=== PATIENT | male | born 1945 | race Hispanic/Latino ===

== ENCOUNTER 2018-03-08 15:02 | Observation (INO) | payer MEDICARE ==
[~2018-03-08] VITALS: Ht 170.2 cm; Wt 62.6 kg
[2018-03-08] MEDS ORDERED: ASPIRIN 81 MG CHEW TAB PO STA (16:15)
[2018-03-08 16:33] LABS: BASOPHILS % 0.3 % (0.0-1.0); EOSINOPHILS % 0.2 % (0.0-6.0); HEMATOCRIT 41.6 % (38.2-49.6); HEMOGLOBIN 14.8 g/dL (14.0-18.0); LYMPHOCYTES # (AUTO) 1.1 (1.0-3.2); LYMPHOCYTES % 18.4 % (18.0-39.1); MEAN CORPUSCULAR HEMOGLOBIN 33.1 pg (28-32); MEAN CORPUSCULAR HGB CONC 35.6 g/dL (31-35); MEAN CORPUSCULAR VOLUME 93.1 fL (81-99); MONOCYTES # (AUTO) 0.7 (0.2-0.8); MONOCYTES % 11.4 % (4.4-11.3); NEUTROPHILS # (AUTO) 4.3 (2.1-6.9); NEUTROPHILS % 69.4 % (38.7-80.0); PLATELET COUNT 191 x10e3/uL (140-360); RED BLOOD COUNT 4.47 x10e6/uL (4.3-5.7); RED CELL DISTRIBUTION WIDTH 12.9 % (11.7-14.4)
[2018-03-08 16:40] LABS: INR 1.02; PROTHROMBIN TIME 12.6 seconds (11.9-14.5)
[2018-03-08 16:41] LABS: PARTIAL THROMBOPLASTIN TIME 28.6 seconds (23.8-35.5)
[2018-03-08 16:48] LABS: ALANINE AMINOTRANSFERASE 19 IU/L (0-55); ALBUMIN 3.3 g/dL (3.5-5.0); ALBUMIN/GLOBULIN RATIO 0.8 (0.8-2.0); ALKALINE PHOSPHATASE 81 IU/L (40-150); ANION GAP 12.6 mmol/L (8-16); BLOOD UREA NITROGEN 15 mg/dL (7-26); BUN/CREATININE RATIO 15 (6-25); CALCIUM 9.9 mg/dL (8.4-10.2); CARBON DIOXIDE 26 mmol/L (22-29); CHLORIDE 103 mmol/L (98-107); CREATINE KINASE 21 IU/L (30-200); CREATININE, SERUM 0.98 mg/dL (0.72-1.25); EST GLOMERULAR FILTRATION RATE > 60 ML/MIN (60-); GLUCOSE 114 mg/dL (74-118); POTASSIUM 4.6 mmol/L (3.5-5.1); SODIUM 137 mmol/L (136-145)
[2018-03-08 17:05] LABS: CLARITY,URINE SL CLOUDY (CLEAR); COLOR,URINE STRAW (YELLOW); KETONES,URINE NEGATIVE (NEGATIVE); LEUKOCYTE ESTERASE ,URINE NEGATIVE (NEGATIVE); NITRITE,URINE NEGATIVE (NEGATIVE); PROTEIN,URINE DIPSTICK TRACE (NEGATIVE); URINE UROBILINOGEN 1 mg/dL (0.2 - 1)
--- NOTE | 2018-03-08 17:05 | Diagnostic Imaging Report ---
PROCEDURE: A single PA view of the chest. COMPARISON: None. INDICATIONS: ABNORMAL EKG FINDINGS: Lines/tubes: None. Lungs: The lungs are well inflated. Mild prominence of interstitial markings, predominantly in the midlung, likely reflecting mild chronic interstitial changes. There is no evidence of pneumonia or pulmonary edema. Pleura: There is no pleural effusion or pneumothorax. Heart and mediastinum: Cardiac silhouette is unremarkable. Pulmonary vasculature is normal. Bones: No acute bony abnormality. IMPRESSION: 1. No acute cardiopulmonary abnormalities. Jon Champion M.D. Dictated by: Jon Champion M.D. on 03/08/2018 at 17:10 Electronically approved by: Jon Chmapion M.D. on 03/08/2018 at 17:10
[2018-03-08 17:06] LABS: BILIRUBIN,URINE NEGATIVE (NEGATIVE)
[2018-03-08 17:25] LABS: BACTERIA,URINE MODERATE /HPF; RBC,URINE 0-5 /HPF (0-5); WBC,URINE (MAN) 0-5 /HPF (0-5)
[2018-03-08 17:26] LABS: HYALINE CASTS 0-1 (0-1); MUCUS,URINE MODERATE (RARE)
[2018-03-08] MEDS ORDERED: MORPHINE SULFATE 2 MG/ML SYR IV PRN (21:45)
[2018-03-09 00:30] VITALS: BP 113/72
[2018-03-09 00:33] VITALS: BP 113/72
[2018-03-09 01:20] LABS: CREATINE KINASE MB 0.4 ng/mL (0-5.0)
[2018-03-09] MEDS ORDERED: ULTRAM50 MG PO (04:10)
[2018-03-09 05:25] VITALS: BP 113/63
[2018-03-09 05:31] LABS: CHOL/HDL RATIO 3.9 (3.9-4.7)
[2018-03-09 07:38] VITALS: BP 99/51
[2018-03-09 09:25] LABS: CREATINE KINASE MB 0.4 ng/mL (0-5.0)
[2018-03-09 11:23] VITALS: BP 133/64
--- NOTE | 2018-03-09 14:09 | History and Physical ---
ATTENDING PHYSICIAN: Antony CLINICAL HISTORY: This is a 68-year-old man admitted via the emergency room and Dr. Ulises Felton's office because of on and off chest pains for approximately a week. This patient had a nuclear stress test in 2009, showed no definite ischemic changes. He was seen again in 2012 before knee surgery. He is apparently disabled because of the knee issues although he said he has had a previous heart attack but there is no such history. He apparently has not had any chest pains or shortness of breath. He is chronically taking tramadol for knee pains. In the past, he has been chronically taking hydrocodone. He continued to smoke and drink. He is not physically active but he is able to walk to the [facility] from his house without any exertion-related chest pains. He watches TV most of the day at home. PAST MEDICAL HISTORY: Remarkable for COPD, dizziness. PAST SURGERIES: Included knee surgery. FAMILY HISTORY: Father had coronary artery disease, mother had diabetes and coronary artery disease. PERSONAL AND SOCIAL HISTORY: Was a smoker since age 17, continued to smoke. He was a heavy drinker, continues to drink 1 to 2 beers per day. He is a retired [employer]. ALLERGIES: NONE KNOWN. REVIEW OF SYSTEMS: Negative. PHYSICAL EXAMINATION GENERAL: He is alert, coherent. VITAL SIGNS: Stable. CARDIAC: Jugular veins were not distended. S1, S2 were regular. There are no appreciable murmurs. LUNGS: Clear. ABDOMEN: Soft. Bowel sounds are present. EXTREMITIES: Show no cyanosis, clubbing or edema. LABORATORY STUDIES: Electrocardiogram showed no acute changes. Chest x-ray was negative. Initial enzymes are negative. IMPRESSION 1. Atypical chest pains not related to exertion, of relatively short duration lasting for 1 second to 5 minutes, associated with shortness of breath. 2. Chronic obstructive pulmonary disease, continued cigarette smoking. 3. History of heavy alcohol usage. 4. Chronic pain medication usage for knee pain. RECOMMENDATIONS: Rule out myocardial infarction. This patient can probably be discharged and do a stress test on outpatient basis. Job#: [id number] LPA cc:ULISES FELTON MD
--- NOTE | 2018-03-09 16:17 | Discharge Summary ---
CLINICAL HISTORY: This is a 68-year-old man, patient of Dr. Ulises Felton, admitted via the emergency room because of atypical chest pains lasting 1 second to 5 minutes on and off for the past week. Please refer to my previous dictation concerning details of current history, past medical history, personal and social history, family history, review of systems, physical examination, and initial laboratory studies. HOSPITAL COURSE: His cardiac enzymes were negative times 3. We decided to do stress testing on an outpatient basis. He will discharge and make an appointment with my office for followup and see Dr. Ulises Felton for followup. DISCHARGE DIAGNOSES: Same as on admission. ALEX DESAI MD Job#: [id number] RI cc:ULISES FELTON MD
== END 2018-03-09 12:58 | disposition home or self-care (01) ==
LOC: ER 15:02 → ERHOLD 21:34 → IMCU 03-09 00:44
PROVIDERS: ADMIT Internal Medicine Cardiovascular Disease; ATTEND Internal Medicine Cardiovascular Disease
DX: R07.89 Other chest pain (principal); J44.9 Chronic obstructive pulmonary disease, unspecified; Z72.0 Tobacco use; Z83.3 Family history of diabetes mellitus; Z82.49 Family history of ischemic heart disease and other diseases of the circulatory system; F10.10 Alcohol abuse, uncomplicated; Z79.891 Long term (current) use of opiate analgesic
CPT/HCPCS: 36415; 71045; 80053; 80061; 81001; 82550 ×2; 82553 ×2; 83880; 84484 ×2; 85025; 85610; 85730; 93005; 99284; G0378 ×2

== ENCOUNTER 2022-03-19 14:51 | Emergency (ER) | payer MEDICARE, OTHER ==
[~2022-03-19] VITALS: Ht 170.2 cm; Wt 62.6 kg
[~2022-03-19 14:51] MED LIST: ULTRAM50 MG PO
[2022-03-19] MEDS ORDERED: SODIUM CHLORIDE 0.9% 1000ML 1,000 ML IV STA (15:36)
[2022-03-19] MEDS ORDERED: FAMOTIDINE 20 MG TAB PO ONE (15:45)
[2022-03-19 15:48] LABS: BASOPHILS % 0.5 % (0.0-1.0); EOSINOPHILS # (AUTO) 0.2 (0.0-0.4); EOSINOPHILS % 2.6 % (0.0-6.0); HEMATOCRIT 49.9 % (38.2-49.6); HEMOGLOBIN 18.1 g/dL (14.0-18.0); LYMPHOCYTES # (AUTO) 0.9 (1.0-3.2); LYMPHOCYTES % 10.3 % (18.0-39.1); MEAN CORPUSCULAR HEMOGLOBIN 34.1 pg (28-32); MEAN CORPUSCULAR HGB CONC 36.3 g/dL (31-35); MONOCYTES # (AUTO) 0.6 (0.2-0.8); MONOCYTES % 6.5 % (4.4-11.3); NEUTROPHILS # (AUTO) 6.7 (2.1-6.9); NEUTROPHILS % 79.9 % (38.7-80.0); PLATELET COUNT 192 x10e3/uL (140-360); RED BLOOD COUNT 5.31 x10e6/uL (4.3-5.7); RED CELL DISTRIBUTION WIDTH 13.2 % (11.7-14.4)
[2022-03-19 15:58] LABS: CLARITY,URINE SL CLOUDY (CLEAR); COLOR,URINE ORANGE (YELLOW); KETONES,URINE 2+ (NEGATIVE); LEUKOCYTE ESTERASE ,URINE NEGATIVE (NEGATIVE); NITRITE,URINE POSITIVE (NEGATIVE); PROTEIN,URINE DIPSTICK 1+ (NEGATIVE); URINE UROBILINOGEN 1 mg/dL (0.2 - 1)
[2022-03-19 16:01] LABS: ALANINE AMINOTRANSFERASE 11 IU/L (0-55); ALBUMIN 3.9 g/dL (3.5-5.0); ALKALINE PHOSPHATASE 100 IU/L (40-150); BLOOD UREA NITROGEN 11 mg/dL (7-26); BUN/CREATININE RATIO 12 (6-25); CALCIUM 9.2 mg/dL (8.4-10.2); CARBON DIOXIDE 23 mmol/L (22-29); CHLORIDE 105 mmol/L (98-107); CREATINE KINASE 27 IU/L (30-200); CREATININE, SERUM 0.95 mg/dL (0.72-1.25); GLUCOSE 121 mg/dL (74-118); LIPASE 34 U/L (8-78); SODIUM 139 mmol/L (136-145)
[2022-03-19 16:10] LABS: BACTERIA,URINE MANY /HPF; EPITHELIAL CELLS,URINE MODERATE /LPF; MUCUS,URINE MODERATE (RARE); RBC,URINE 0-5 /HPF (0-5)
[2022-03-19] MEDS ORDERED: DONNATAL/LIDOCAINE/MAALOX 30 ML SUSP PO ONE (16:15)
[2022-03-19] MEDS ORDERED: FAMOTIDINE 20 MG/2 ML VIAL IV STA (16:48)
[2022-03-19] MEDS ORDERED: ONDANSETRON HCL INJ 2MG/ML 2ML 2 MG/ML VIAL IV STA (16:48)
[2022-03-19] MEDS ORDERED: LIDOCAINE VISC 2% SOLN 15 ML UDC ONE (16:49)
[2022-03-19] MEDS ORDERED: BELLADONNA ALK/PHENOBARBITAL 5 ML UDC ONE (16:50)
[2022-03-19] MEDS ORDERED: IOPAMIDOL 370 MG/ML 100 ML INFUS..BTL INJ ONE (19:46)
[2022-03-19] MEDS ORDERED: DONNATAL/LIDOCAINE/MAALOX 30 ML SUSP PO SCH (21:00)
== END 2022-03-19 18:37 | disposition home or self-care (01) ==
LOC: ER 15:07
DX: R07.89 Other chest pain (principal); R10.11 Right upper quadrant pain; R06.02 Shortness of breath; R50.9 Fever, unspecified; R11.2 Nausea with vomiting, unspecified; F17.210 Nicotine dependence, cigarettes, uncomplicated
CPT/HCPCS: 36415; 71045; 74177; 80053; 81001; 82550; 82553; 83690; 83880; 84484; 85025; 93005; 99284; J2405; J7030; Q9967